=== PATIENT | male | born 1925 | race Caucasian/White ===

== ENCOUNTER 2016-08-25 07:55 | Emergency (ER) | payer BC ==
[~2016-08-25] VITALS: Ht 177.8 cm; Wt 75.6 kg
[~2016-08-25 07:55] MED LIST: AMLO-110 PO; CHOL100010 PO; GLUCTAB7 PO; MULT-506 PO; OMEG10007 PO; OMEP20CA59 PO; TAMS0.4C38 PO; VITAMIN B12 PO
[2016-08-25 07:58] VITALS: TEMP 36.7; Ht 177.8 cm; Wt 75.6 kg
[2016-08-25] MEDS ORDERED: MoRPHine SULFATE 2 MG/ML CARP IV STA (08:16)
[2016-08-25] MEDS ORDERED: ONDANSETRON INJ 2 MG/ML 2 ML VIAL IV STA (08:16)
[2016-08-25] MEDS ORDERED: SODIUM CHLORIDE 0.9% 1000ML 1,000 ML IV STA (08:16)
[2016-08-25 08:34] LABS: BASO % 0.3 %; BASO ABS # 0.02 K/uL (0-0.2); COMPLETE YES; EOS % 1.7 %; HEMATOCRIT 39.9 % (42-52); IG% 0.3 %; LYMPH % 14.6 %; LYMPH ABS # 1.15 K/uL (1.2-3.4); MEAN CELL VOLUME 90.5 fL (80-100); MEAN CORPUSCULAR HGB CONC 35.3 g/dl (32-36); MEAN PLATELET VOLUME 10.7 fL (7.4-10.4); MONO % 13.5 %; NEUT % 69.6 %; PLATELET COUNT 193 K/uL (130-400); RED BLOOD COUNT 4.41 M/uL (4.7-6.1); WHITE BLOOD COUNT 7.86 K/uL (4.8-10.8)
--- NOTE | 2016-08-25 08:37 | DIAGNOSTIC IMAGING REPORT ---
CHEST ONE VIEW PORTABLE CLINICAL HISTORY: fall with chest and L shoulder pain trauma. Pain. COMPARISON STUDY: 06/28/2015 FINDINGS: The bones soft tissues and hemidiaphragms are normal. The cardiomediastinal silhouette is normal. The lungs are clear. The pulmonary vasculature is normal. IMPRESSION: Negative chest. Electronically signed by: Nicholas Almonte M.D. 08/25/2016 8:35 AM Dictated Date/Time: 08/25/2016 8:34 AM
[2016-08-25 08:54] LABS: BUN/CREATININE RATIO 17.3 (10-20); CALCIUM 8.7 mg/dl (8.5-10.1); CREATININE 1.3 mg/dl (0.60-1.40); POTASSIUM 3.9 mmol/L (3.5-5.1)
[2016-08-25 08:58] LABS: CKMB/CK RATIO 2.4 (0-3.0)
--- NOTE | 2016-08-25 09:04 | DIAGNOSTIC IMAGING REPORT ---
LEFT SHOULDER 3 VIEWS CLINICAL HISTORY: Fall with left arm pain. FINDINGS: 3 views of left shoulder are obtained. No prior studies are available for comparison at the time of dictation. The skeletal structures are osteopenic. There is a minimally distracted and angulated fracture through the distal clavicle. No additional fracture is seen. Productive degenerative change is identified at the acromioclavicular joint. The glenohumeral articulation appears preserved. Mild arthritic changes seen in the greater tuberosity. Mild soft tissue swelling overlies the left clavicular head. The partially imaged left upper lobe lung parenchyma appears clear. IMPRESSION: 1. There is a minimally distracted fracture involving the distal left clavicle. 2. No additional fracture is seen. There is no dislocation. Electronically signed by: Marco Medina M.D. 08/25/2016 9:03 AM Dictated Date/Time: 08/25/2016 9:00 AM
--- NOTE | 2016-08-25 09:06 | DIAGNOSTIC IMAGING REPORT ---
LEFT RIBS UNILATERAL MIN 2 VIEWS CLINICAL HISTORY: fall trauma. Pain. COMPARISON STUDY: None FINDINGS: Cortical fracture left seventh rib. Remaining ribs are unremarkable. Minimal atelectasis left base. IMPRESSION: Nondisplaced cortical fracture left seventh rib. Fracture distal aspect left clavicle Electronically signed by: Nicholas Almonte M.D. 08/25/2016 9:04 AM Dictated Date/Time: 08/25/2016 9:02 AM
[2016-08-25] MEDS ORDERED: OXYCODONE/ACETAMINOPHEN 5-325 TAB PO ONE (09:15)
[2016-08-25] MEDS ORDERED: OXYC-57 PO (09:19)
[2016-08-25 09:42] VITALS: BP 158/86; PULSE 67; O2SAT 96
--- NOTE | 2016-08-25 18:57 | EMERGENCY ROOM VISIT NOTE ---
ED Visit Note First contact with patient: 08:03 Chief Complaint: Fall. History of Present Illness: Mr. Lan is an 89-year-old white male who ambulates into the complaining of left shoulder pain after fall last night. Patient reports approximately 10 hours ago he was standing up from the sitting position and fell onto the floor. He reports he might of had some mild lightheadedness before the fall he did not strike his head or have loss of consciousness. Additionally he reports he has no signs of head injury since the fall. Since the fall he has been having pain over the left humerus and distal clavicle. Currently she describes his pain as a sharp sensation over the left humeral head and distal scapula. He rates his discomfort 5/10. He reports radiation from the shoulder into his left chest. His pain worsens with palpation of the shoulder and any movements of the shoulder. He has not identified any alleviating factors related to the pain. He reports she has not taken any medications for pain prior to arrival at the hospital. He denies any associated symptoms including abnormal neurological symptoms, neck pain, back pain, shortness of breath, palpitations, orthopnea, left upper extremity weakness/numbness/tingling, abdominal pain, nausea, vomiting. Review of Systems: As noted above in history of present illness. All body systems were reviewed and found to be negative as noted above. Past Medical History: (1) Cancer (2) CHRONIC KIDNEY DISEASE, UNSPECIFIED (3) DIVERTICULOSIS COLON (W/O MENT OF HEMORRHAGE) (4) HTN (hypertension) (5) OTH LYMPHOMAS EXTRANODAL & SOLID ORGAN UNSPECIFIED (6) PERSONAL HISTORY OF PEPTIC ULCER DISEASE (7) Small bowel obstruction Current Medications: Medications Dose Route/Sig Max Daily Dose Days Date Category Dose Instructions [Vitamin B12] 1 Tab PO QAM 01/11/16 Reported Flomax (Tamsulosin Hcl) 0.4 Mg Cap 0.4 Mg PO HS 01/11/16 Reported Cordova-3 (Fish Oil) 1 Ea Cap 2 Cap PO QAM 01/08/16 Reported Vitamin D (Cholecalciferol) 1,000 Inter.unit Tab 1,000 Inter.unit PO QAM 01/08/16 Reported Glucosamine Chondroitin (Kdcmkcdsnud-Imeupjwijkg-Suf C-) 1 Tab Tab 2 Tab PO QAM 11/13/13 Reported Norvasc (Amlodipine Besylate) 5 Mg Tab 5 Mg PO QAM 11/26/12 Reported Multivitamin (Multivitamins) Tab 1 Tablet PO QAM 12/02/11 Reported Prilosec (Omeprazole) 20 Mg Capcr 20 Mg PO QAM 12/02/11 Reported Allergies to Medications: Codeine, naproxen. Social History: Patient is currently retired; he feels safe environment; he denies tobacco and alcohol use. Physical Examination: Vital Signs: Date Time Temp Pulse Resp B/P Pulse Ox O2 Delivery O2 Flow Rate FiO2 08/25/16 09:42 67 18 158/86 96 08/25/16 09:01 69 18 166/72 99 Room Air 08/25/16 08:17 78 08/25/16 07:58 36.7 82 18 171/81 100 Room Air GENERAL: 89-year-old male in mild distress due to pain, nontoxic-appearing, afebrile and hemodynamically stable. NEUROLOGICAL: Awake, alert and oriented to person, place and time. Answering questions appropriately and following commands. Normal gait. Cranial nerves II through XII grossly intact. Short-term and long-term recall. SKIN: Warm, dry and pink. No soft tissue eruptions or trauma noted. HEENT: Atraumatic and normocephalic. PERRLA. EOMI without nystagmus. Sclera white and conjunctiva pink. No drainage from naris. Oral cavity moist and pink. Pharynx is nonerythematous or edematous. Speech normal. No lymphadenopathy. Trachea midline. No jugular venous distention. No carotid bruits. BACK: No tenderness over the bony cervical and thoracic spine. Full range of motion of the cervical spine. THORAX: Lungs sounds are clear to auscultation and equal bilaterally with symmetrical chest wall. No wheezing, rales or rhonchi. Mild tenderness over the left anterior chest wall without bony deformity, crepitus, ecchymosis or swelling. No subcutaneous air. HEART: Regular rate and rhythm. No gallops, rubs or murmurs are appreciated. ABDOMEN: Flat, soft and nontender. Positive bowel sounds in all quadrants. No guarding, rigidity or organomegaly. LEFT UPPER EXTREMITY: No gross bony deformity. Mild tenderness over the humeral head and moderate tenderness over the distal clavicle with questionable deformity of the clavicle. Mild swelling over the distal clavicle but no ecchymosis. No tenderness throughout the humeral shaft, elbow, forearm or wrist. He refuses to do range of motion exercises at the shoulder due to pain. With the shoulder stabilize she has full range of motion in flexion and extension of the elbow, pronation and supination of forearm and flexion and extension of the wrist. All distal neurovascular statuses are intact and equal bilaterally. No calf tenderness or cords. RIGHT UPPER EXTREMITY: No gross bony deformity. No tenderness over the shoulder , elbow, forearm, wrist or hands. All distal neurovascular statuses are intact and equal bilaterally. ED Course: Patient is assessed as noted above. Laboratory Testing: Test 08/25/16 08:24 08/25/16 08:26 Range/Units White Blood Count 7.86 4.8-10.8 K/uL Red Blood Count 4.41 4.7-6.1 M/uL Hemoglobin 14.1 14.0-18.0 g/dL Hematocrit 39.9 42-52 % Mean Corpuscular Volume 90.5 80-100 fL Mean Corpuscular Hemoglobin 32.0 25-34 pg Mean Corpuscular Hemoglobin Concent 35.3 32-36 g/dl Platelet Count 193 130-400 K/uL Mean Platelet Volume 10.7 7.4-10.4 fL Neutrophils (%) (Auto) 69.6 % Lymphocytes (%) (Auto) 14.6 % Monocytes (%) (Auto) 13.5 % Eosinophils (%) (Auto) 1.7 % Basophils (%) (Auto) 0.3 % Neutrophils # (Auto) 5.48 1.4-6.5 K/uL Lymphocytes # (Auto) 1.15 1.2-3.4 K/uL Monocytes # (Auto) 1.06 0.11-0.59 K/uL Eosinophils # (Auto) 0.13 0-0.5 K/uL Basophils # (Auto) 0.02 0-0.2 K/uL RDW Standard Deviation 44.5 36.4-46.3 fL RDW Coefficient of Variation 13.3 11.5-14.5 % Immature Granulocyte % (Auto) 0.3 % Immature Granulocyte # (Auto) 0.02 0.00-0.02 K/uL Sodium Level 139 136-145 mmol/L Potassium Level 3.9 3.5-5.1 mmol/L Chloride Level 105 98-107 mmol/L Carbon Dioxide Level 27 21-32 mmol/L Anion Gap 7.0 3-11 mmol/L Blood Urea Nitrogen 23 7-18 mg/dl Creatinine 1.30 0.60-1.40 mg/dl Est Creatinine Clear Calc Drug Dose 39.8 ml/min Estimated GFR () 56.1 Estimated GFR (Non- 48.4 BUN/Creatinine Ratio 17.3 10-20 Random Glucose 106 70-99 mg/dl Calcium Level 8.7 8.5-10.1 mg/dl Total Bilirubin 0.5 0.2-1 mg/dl Direct Bilirubin 0.1 0-0.2 mg/dl Aspartate Amino Transf (AST/SGOT) 29 15-37 U/L Alanine Aminotransferase (ALT/SGPT) 26 12-78 U/L Alkaline Phosphatase 95 45-117 U/L Total Creatine Kinase 211 39-308 U/L Creatine Kinase MB 5.0 0.5-3.6 ng/ml Creatine Kinase MB Ratio 2.4 0-3.0 Total Protein 7.1 6.4-8.2 gm/dl Albumin 3.7 3.4-5.0 gm/dl Lipase 102 73-393 U/L Bedside Troponin I 0.000 0-0.045 ng/ml EKG: Was read by myself and reviewed with Dr. Ludwig; shows sinus bradycardia with a first-degree AV block. Ventricular rate 73 bpm. Normal axis, intervals and complexes. No acute ST changes indicating ischemia, injury or infarction. This was compared to a previous from December 2015 and no acute changes noted. Chest X-Rays: Was read by myself and shows no acute infiltrates, effusions or pneumothorax. Normal heart silhouette and normal appearing pulmonary vasculature. Left Rib X-Rays: Were read by myself and the radiologist showing a nondisplaced cortical fracture of the seventh rib and a fracture of the distal left clavicle. Left Shoulder X-Rays: Were read by myself and the radiologist showing a minimally distracted fracture of the distal left clavicle with mild soft tissue swelling but no fracture or dislocation of the glenohumeral joint. An IV lock was initiated and patient was hydrated with normal saline and received 2 mg of morphine IV and 4 mg of Zofran IV for his symptoms. After his x-rays his pain increased and he was given one Percocet tablet by mouth. Patient was placed in a shoulder immobilizer. Patient was reassessed multiple times during his stay in the emergency department. Patient's case was reviewed with Dr. Ludwig; we agreed on diagnostic approach, treatment, disposition and plan. Patient is educated about tonight's findings and instructed on his treatment plan; he verbalizes understanding and agreement with this plan. Clinical Impression: Left clavicle fracture. Left seventh rib fracture. Status post fall. Disposition: Patient discharged home in stable condition; prior to departure or to departure he was reassessed and subjectively reported he was feeling better. Plan: Comfort measures including rest, ice, immobilize or use and a sliding pain scale of ibuprofen and acetaminophen and [place] were discussed with the patient; patient was warned about narcotic use and given appropriate precautions. Patient was encouraged to follow-up with family physician for his rib fracture. Patient was encouraged to follow-up with orthopedist for his clavicle fracture. Patient was encouraged return ED for worsening/uncontrolled pain, shortness of breath, fevers, coughing up blood, left arm weakness/numbness/tingling or any new/concerning symptoms.
--- NOTE | 2016-08-27 15:21 | EMERGENCY ROOM VISIT NOTE ---
ED Visit Note First contact with patient: 08:03 I have personally seen and evaluated the patient with the PA. I agree with the diagnosis and management decisions and have been personally involved in the case. Please see Kwame Kaufman PA-C's notes for further details of the history, physical and visit.
== END 2016-08-25 09:42 | disposition home or self-care (01) ==
LOC: C.EDB 07:57
DX: S42.002A Fracture of unspecified part of left clavicle, initial encounter for closed fracture (principal); S22.32XA Fracture of one rib, left side, initial encounter for closed fracture; W19.XXXA Unspecified fall, initial encounter; Y92.019 Unspecified place in single-family (private) house as the place of occurrence of the external cause; N18.9 Chronic kidney disease, unspecified; K57.30 Diverticulosis of large intestine without perforation or abscess without bleeding; I12.9 Hypertensive chronic kidney disease with stage 1 through stage 4 chronic kidney disease, or unspecified chronic kidney disease; Z85.72 Personal history of non-Hodgkin lymphomas; K27.9 Peptic ulcer, site unspecified, unspecified as acute or chronic, without hemorrhage or perforation; Z79.899 Other long term (current) drug therapy